=== PATIENT | female | born 1960 | race Caucasian/White ===

== ENCOUNTER → 2017-09-20 | Outpatient (CLI) | payer OTHER | LOC: BMCIMAGING 13:34 | PROVIDERS: ATTEND Family Medicine | DX: Z12.31 Encounter for screening mammogram for malignant neoplasm of breast (principal) ==

== ENCOUNTER 2017-11-24 00:01 | Emergency (ER) | payer OTHER ==
[2017-11-24] MEDS ORDERED: ASPIRIN 81 MG CHEWABLE TAB PO ONE (00:06)
[2017-11-24] MEDS ORDERED: LORazepam 2 MG/ML INJ IVP ONE (00:09)
--- NOTE | 2017-11-24 00:10 | CPEKG ---
Heart Rate: 79 RR Interval: 759 P-R Interval: 164 QRSD Interval: 98 QT Interval: 396 QTC Interval: 455 P [place]: 80 QRS [place]: 75 T Wave [place]: 60 EKG Severity - NORMAL ECG - EKG Impression: SINUS RHYTHM Electronically Signed By: Tiffani Gotti 24-Nov-2017 01:30:36
--- NOTE | 2017-11-24 00:20 | EDPHY ---
H & P Stated Complaint: CHEST PAIN Time Seen by Provider: 11/24/17 00:07 HPI/ROS: CC: Chest pain HPI: This 57-year-old female with past medical history of rheumatoid arthritis and anxiety presents to the emergency department with a bed maker complaining of chest discomfort and is worried she is having a heart attack. The symptoms started 0.5 hr prior to arrival. It woke her up. She describes it as a pressure in her mid chest, 3/10, without radiation. She felt like she could not take a deep breath and felt like she got sweaty. She was not nauseated. There were no aggravating or alleviating factors. She has not had discomfort like this before. She had dinner approximately 3 hr prior to going to sleep in that consisted of [place]. She did not feel like this was acid reflux. She has been having strange sensations in her legs and saw her orthopedic provider earlier today. REVIEW OF SYSTEMS: Constitutional: No fever, no chills. Eyes: No discharge. ENT: No sore throat. Respiratory: No cough. Cardiac: No palpitations. Gastrointestinal: No abdominal pain, no vomiting. Musculoskeletal: No back pain. Skin: No rashes. Neurological: No headache. Source: Patient Exam Limitations: No limitations - Medical/Surgical History PMH: PMH: Rheumatoid Arthritis, Anxiety PSH: Knee, Shoulder FH: Strong family history of premature Coronary Artery Disease with Father, Brother, and Sister all having myocardial infarctions before the age of 55. Allergies: PCN, codeine Medications: Plaquenil 200mg BID, Lexapro 5mg daily, Medical Marijuana and CBD oil Hx Asthma: No Other PMH: none - Social History Smoking Status: Never smoked Additional Social History: No tobacco products, never smoked; drinks a glass of wine daily; medical mariuana and CBD oil; no illicits PCP: Patricia Spencer - Physical Exam Exam: General Appearance: Alert, thin. Very anxious, shaking. Eyes: Pupils equal and round no pallor or injection. ENT, Mouth: Mucous membranes are moist. Respiratory: There are no retractions, lungs are clear to auscultation. Cardiovascular: Regular rate and rhythm. No murmurs, gallops, or rubs. Gastrointestinal: Abdomen is soft and nontender, no masses, bowel sounds normal. Neurological: Awake and alert, sensory and motor exams grossly normal. Skin: Warm and dry, no rashes. Musculoskeletal: Neck is supple, nontender, no JVD. Extremities are symmetrical, full range of motion. Psychiatric: Patient is oriented X 3, there is no agitation. DIFFERENTIAL DIAGNOSIS: After history and physical exam differential diagnosis was considered for but not limited to: myocardial infarction, pericarditis, pulmonary embolism, pneumothorax, gastroesophageal reflux, biliary, anxiety. Constitutional: Initial Vital Signs Temperature (C) 97.9 F 11/24/17 00:05 Heart Rate 82 11/24/17 00:05 Respiratory Rate 29 H 11/24/17 00:05 Blood Pressure 140/87 H 11/24/17 00:05 O2 Sat (%) 93 11/24/17 00:05 O2 Delivery Mode Nasal Cannula O2 (L/minute) 2 Allergies/Adverse Reactions: codeine [Codeine] Allergy (Unknown, Verified 11/24/17 00:07) Penicillins Allergy (Verified 11/24/17 00:07) Home Medications: Medication Instructions Recorded LEXAPRO 12/04/10 Cbd Oil 11/24/17 Medical Marijuana 11/24/17 Plaquenil 200 mg (*) 11/24/17 Medical Decision Making - Diagnostics EKG Interpretation: EKG #1: NSR, HR 79, no acute ischemic changes EKG #2: Imaging Results: 2-view CXR - NAD Imaging: I viewed and interpreted images myself ED Course/Re-evaluation: Patient was seen and examined. Vital signs were reviewed. Her blood pressure was slightly high in the 140mmHg systolic. Patient states that she normally has a blood pressure of 120mmHg systolic. She was given aspirin. EKG showed a normal sinus rhythm, heart rate 79, no acute ischemic changes. She declined morphine. She was very anxious and was given 0.5 mg of Ativan IV. Her discomfort was already down to a 1/10. CBC, comprehensive metabolic panel, D- dimer normal. Troponin 0.00. Two view chest x-ray was normal. The patient was offered admission due to the strong family history of cardiac disease. She chose to have a repeat troponin and if normal go home to follow up with her primary care provider. I feel this is a reasonable alternative. 0246 Second EKG NSR, HR 68. No acute ischemic changes. Troponin 0.01. The patient is discharged home to follow up with Dr. Patricia Spencer on Sunday without fail. She understands she should talk to her doctor about setting up a treadmill stress test. She will return to the ED immediately if symptoms return. - Data Points Laboratory Results: 11/24/17 11/24/17 00:16 00:16 POC Sodium 142 mEq/L mEq/L (135-145) POC Potassium 3.7 mEq/L mEq/L (3.3-5.0) POC Chloride 106.0 mEq/L mEq/L (97-110) POC Total CO2 27 mEq/L mEq/L (22-31) POC BUN 10 mg/dL mg/dL (7-23) POC Creatinine 0.8 mg/dL mg/dL (0.6-1.0) POC Glucose 95 mg/dL mg/dL (70-100) POC Calcium 9.7 mg/dL mg/dL (8.5-10.4) POC Total Bilirubin 0.8 mg/dL mg/dL (0.1-1.4) POC AST 36 IU/L IU/L (14-46) POC ALT 27 IU/L IU/L (9-52) POC Alk Phosphatase 82 IU/L IU/L (38-126) POC Troponin I 0.00 ng/mL ng/mL (0.00-0.08) POC Total Protein 7.9 g/dL g/dL (6.3-8.2) POC Albumin 3.8 g/dL g/dL (3.5-5.0) Medications Given: Discontinued Medications Aspirin (Aspirin) 324 mg PO EDNOW ONE Stop: 11/24/17 00:07 Last Admin: 11/24/17 00:11 Dose: 324 mg Lorazepam (Ativan Injection) 0.5 mg IVP EDNOW ONE Stop: 11/24/17 00:10 Last Admin: 11/24/17 00:16 Dose: 0.5 mg Lorazepam (Ativan) 1 mg PO EDNOW ONE Stop: 11/24/17 00:58 Last Admin: 11/24/17 00:59 Dose: 1 mg Point of Care Test Results: CBC CBC Collection Date 11/24/17 CBC Collection Time 00:10 WBC 5.4 RBC 3.98 HGB 13.5 HCT 40 PLT 349 Neut # 2.4 Neut 44.8 LYMPH # 2.4 LYMPH 44.9 Other WBC # 0.6 Other WBC 10.3 MCV 100.5 Chemistry 11/24/17 11/24/17 00:16 00:16 POC Sodium 142 mEq/L mEq/L (135-145) POC Potassium 3.7 mEq/L mEq/L (3.3-5.0) POC Chloride 106.0 mEq/L mEq/L (97-110) POC Total CO2 27 mEq/L mEq/L (22-31) POC BUN 10 mg/dL mg/dL (7-23) POC Creatinine 0.8 mg/dL mg/dL (0.6-1.0) POC Glucose 95 mg/dL mg/dL (70-100) POC Calcium 9.7 mg/dL mg/dL (8.5-10.4) POC Total Bilirubin 0.8 mg/dL mg/dL (0.1-1.4) POC AST 36 IU/L IU/L (14-46) POC ALT 27 IU/L IU/L (9-52) POC Alk Phosphatase 82 IU/L IU/L (38-126) POC Troponin I 0.00 ng/mL ng/mL (0.00-0.08) POC Total Protein 7.9 g/dL g/dL (6.3-8.2) POC Albumin 3.8 g/dL g/dL (3.5-5.0) D-Dimer D-Dimer Collection Date 11/24/17 D-Dimer Collection Time 00:10 D-Dimer (ng/ml) <100 Departure - Departure Clinical Impression: Chest pain Qualifiers: Chest pain type: unspecified Qualified Code(s): R07.9 - Chest pain, unspecified Condition: Good Instructions: Chest Pain (ED) Additional Instructions: Return to the Emergency Department immediately if symptoms return. Otherwise, follow up with your primary care provider on Sunday. You will need to have an outpatient stress test. Referrals: Patricia Spencer MD [[facility] Primary Care Provider] - 11/26/17
[2017-11-24] MEDS ORDERED: LORazepam 1 MG TAB PO ONE (00:57)
[2017-11-24 03:03] VITALS: BP 123/73
--- NOTE | 2017-11-26 08:06 | CPEKG ---
Heart Rate: 68 RR Interval: 882 P-R Interval: 176 QRSD Interval: 92 QT Interval: 416 QTC Interval: 443 P [place]: 84 QRS [place]: 76 T Wave [place]: 50 EKG Severity - NORMAL ECG - EKG Impression: SINUS RHYTHM Electronically Signed By: Joel Sousa 26-Nov-2017 08:44:00
== END 2017-11-24 03:45 | disposition home or self-care (01) ==
LOC: CED 00:01
DX: R07.9 Chest pain, unspecified (principal)
CPT/HCPCS: 71046-PO; 80053-PO; 84484-PO; 96374; J2060